=== PATIENT | female | born 1950 | race Caucasian/White ===

== ENCOUNTER → 2024-06-13 07:38 | Outpatient (REF) | payer MEDICARE, OTHER, SELFPAY ==
[2024-06-13 10:22] LABS: % Basophils 1.2 % (0-2); % Eosinophils 4.2 % (0-6); % Immature Granulocytes 0.3 % (0-0.5); % Lymphocytes 35.1 % (20.5-51.1); % Monocytes 9.1 % (1.7-9.3); % Neutrophils 50.1 % (42.2-75.2); Absolute Basophils 0.1 10^3/uL (0-0.2); Absolute Eosinophils 0.3 10^3/uL (0-0.7); Absolute Lymphocytes 2.1 10^3/uL (1.2-3.4); Absolute Monocytes 0.5 10^3/uL (0.1-0.6); Hematocrit 42.1 % (37.0-47.0); Hemoglobin 14.5 g/dL (12.0-16.0); Mean Corp Hgb Conc. 34.4 g/dL (33.0-37.0); Mean Corpuscular Hgb 32.2 pg (27.0-31.0); Mean Corpuscular Volume 93.6 fL (81.0-99.0); Nucleated Red Blood Cells % 0 %; Red Cell Dist. Width 12.6 % (11.5-14.5)
[2024-06-13 10:32] LABS: ALT (SGPT) 36 U/L (0-35); AST (SGOT) 42 U/L (14-36); Alkaline Phosphatase 66 U/L (38-126); Blood Urea Nitrogen 14 mg/dl (7-17); Calcium 9.8 mg/dl (8.4-10.2); Carbon Dioxide 26 mmol/L (22-30); Chloride 100 mmol/L (98-107); Glucose 100 mg/dl (70-99); HDL Cholesterol 109 mg/dl; LDL Cholesterol, Calculated 45 mg/dl; Potassium 4.5 mmol/L (3.5-5.1); Sodium 141 mmol/L (135-145); Total Bilirubin 1.3 mg/dl (0.2-1.3); Total Cholesterol 178 mg/dl (50-199); Total Protein 7.5 g/dl (6.3-8.2); Triglyceride 120 mg/dl (10-149); Very Low Density Lipoprotein 24 mg/dl (0-30); eGFR > 60.00
[2024-06-13 10:46] LABS: Urine Albumin Negative (Neg - Trace); Urine Bilirubin Negative (Negative); Urine Character Clear (Clear); Urine Color Yellow; Urine Glucose Negative (Negative); Urine Ketone Negative (Negative); Urine Leukocyte Negative (Negative); Urine Nitrite Negative (Negative); Urine Occult Blood Negative (Negative); Urine Urobilinogen Negative (Neg - 1+)
[2024-06-13 11:02] LABS: TSH 1.51 uIU/ml (0.47-4.68)
[2024-06-13 12:17] LABS: Glycohemoglobin (HgbA1c) 5.6 % (4.0-5.6)
== END ==
LOC: REG 07:38
PROVIDERS: ATTENDING PHYSICIAN Internal Medicine Geriatric Medicine
DX: E78.5 Hyperlipidemia, unspecified (principal); E04.1 Nontoxic single thyroid nodule; R73.09 Other abnormal glucose; R35.0 Frequency of micturition; R53.82 Chronic fatigue, unspecified; Z79.899 Other long term (current) drug therapy
CPT/HCPCS: 36415; 80053; 80061; 81003; 83036; 84443; 85025

== ENCOUNTER → 2024-07-29 13:44 | Outpatient (REF) | payer MEDICARE, OTHER, SELFPAY | LOC: WDC 13:44 | PROVIDERS: ATTENDING PHYSICIAN Internal Medicine Geriatric Medicine | DX: Z12.31 Encounter for screening mammogram for malignant neoplasm of breast (principal) | CPT/HCPCS: 77063; 77067 ==

== ENCOUNTER → 2024-08-07 10:53 | Outpatient (REF) | payer MEDICARE, OTHER, SELFPAY | LOC: RAD 10:53 | PROVIDERS: ATTENDING PHYSICIAN Internal Medicine Geriatric Medicine | DX: Z00.00 Encounter for general adult medical examination without abnormal findings (principal); I10 Essential (primary) hypertension; E78.2 Mixed hyperlipidemia; E04.1 Nontoxic single thyroid nodule; R35.0 Frequency of micturition; J04.10 Acute tracheitis without obstruction; K21.9 Gastro-esophageal reflux disease without esophagitis; Z13.31 Encounter for screening for depression; Z12.31 Encounter for screening mammogram for malignant neoplasm of breast; I65.23 Occlusion and stenosis of bilateral carotid arteries | CPT/HCPCS: 93880 ==

== ENCOUNTER → 2024-08-30 12:46 | Outpatient (REF) | payer MEDICARE, OTHER, SELFPAY | LOC: RAD 12:46 | PROVIDERS: ATTENDING PHYSICIAN Internal Medicine Geriatric Medicine | DX: Z00.00 Encounter for general adult medical examination without abnormal findings (principal); I10 Essential (primary) hypertension; E78.2 Mixed hyperlipidemia; E04.1 Nontoxic single thyroid nodule; R35.0 Frequency of micturition; J04.10 Acute tracheitis without obstruction; K21.9 Gastro-esophageal reflux disease without esophagitis; Z13.31 Encounter for screening for depression; Z12.31 Encounter for screening mammogram for malignant neoplasm of breast; I65.23 Occlusion and stenosis of bilateral carotid arteries; M81.0 Age-related osteoporosis without current pathological fracture; Z78.0 Asymptomatic menopausal state | CPT/HCPCS: 77080 ==

== ENCOUNTER → 2024-10-07 07:55 | Outpatient (REF) | payer MEDICARE, OTHER, SELFPAY ==
[2024-10-07 09:27] LABS: % Eosinophils 2.6 % (0-6); % Immature Granulocytes 0.2 % (0-0.5); % Lymphocytes 37.3 % (20.5-51.1); % Monocytes 8.8 % (1.7-9.3); % Neutrophils 50.1 % (42.2-75.2); Absolute Basophils 0.1 10^3/uL (0-0.2); Absolute Eosinophils 0.2 10^3/uL (0-0.7); Absolute Lymphocytes 2.3 10^3/uL (1.2-3.4); Absolute Monocytes 0.5 10^3/uL (0.1-0.6); Absolute Neutrophils 3.1 10^3/uL (1.4-6.5); Hematocrit 42.4 % (37.0-47.0); Hemoglobin 14.5 g/dL (12.0-16.0); Mean Corp Hgb Conc. 34.2 g/dL (33.0-37.0); Mean Corpuscular Hgb 32.7 pg (27.0-31.0); Mean Corpuscular Volume 95.7 fL (81.0-99.0); Mean Platelet Volume 9.7 fL (7.4-10.4); Nucleated Red Blood Cells % 0 %; Platelet Count 237 10^3/uL (130-400); Red Blood Cell Count 4.43 10^6/uL (4.20-5.40); Red Cell Dist. Width 12.4 % (11.5-14.5); White Blood Cell Count 6.2 10^3/uL (4.8-10.8)
[2024-10-07 09:54] LABS: ALT (SGPT) 25 U/L (0-35); AST (SGOT) 30 U/L (14-36); Albumin 4.5 g/dl (3.5-5.0); Alkaline Phosphatase 86 U/L (38-126); Blood Urea Nitrogen 14 mg/dl (7-17); Calcium 9.8 mg/dl (8.4-10.2); Carbon Dioxide 31 mmol/L (22-30); Chloride 100 mmol/L (98-107); Glucose 104 mg/dl (70-99); Magnesium 2.1 mg/dl (1.6-2.3); Phosphorus 3.7 mg/dl (2.5-4.5); Potassium 4.3 mmol/L (3.5-5.1); Sodium 138 mmol/L (135-145); Total Protein 7.4 g/dl (6.3-8.2); eGFR > 60.00
[2024-10-07 10:04] LABS: Vitamin D, 25-OH*** 47.2 ng/mL (30-80)
[2024-10-09 10:22] LABS: Intact PTH 39.2 pg/ml (13.6-85.8)
== END ==
LOC: RAD 07:55
PROVIDERS: ATTENDING PHYSICIAN Student in an Organized Health Care Education/Training Program; FAMILY PHYSICIAN Internal Medicine Geriatric Medicine
DX: M25.551 Pain in right hip (principal); M81.0 Age-related osteoporosis without current pathological fracture; S62.102S Fracture of unspecified carpal bone, left wrist, sequela
CPT/HCPCS: 36415; 73502; 80053; 82306; 83735; 83970; 84100; 85025

== ENCOUNTER → 2024-11-24 08:15 | Outpatient (REF) | payer MEDICARE, OTHER, SELFPAY | LOC: MRI 3T 08:15 | PROVIDERS: ATTENDING PHYSICIAN Internal Medicine Geriatric Medicine | DX: I10 Essential (primary) hypertension (principal); E78.2 Mixed hyperlipidemia; E04.1 Nontoxic single thyroid nodule; R35.0 Frequency of micturition; J04.10 Acute tracheitis without obstruction; K21.9 Gastro-esophageal reflux disease without esophagitis; Z13.31 Encounter for screening for depression; M79.18 Myalgia, other site | CPT/HCPCS: 73721 ==

== ENCOUNTER → 2024-12-19 07:20 | Outpatient (REF) | payer MEDICARE, OTHER, SELFPAY ==
[2024-12-19 08:35] LABS: % Basophils 0.8 % (0-2); % Eosinophils 2.2 % (0-6); % Immature Granulocytes 0.3 % (0-0.5); % Lymphocytes 28.1 % (20.5-51.1); % Neutrophils 60.6 % (42.2-75.2); Absolute Basophils 0.1 10^3/uL (0-0.2); Absolute Eosinophils 0.2 10^3/uL (0-0.7); Absolute Monocytes 0.6 10^3/uL (0.1-0.6); Absolute Neutrophils 4.3 10^3/uL (1.4-6.5); Hematocrit 45.2 % (37.0-47.0); Hemoglobin 15.4 g/dL (12.0-16.0); Mean Corp Hgb Conc. 34.1 g/dL (33.0-37.0); Mean Corpuscular Hgb 33.3 pg (27.0-31.0); Mean Corpuscular Volume 97.6 fL (81.0-99.0); Mean Platelet Volume 9.5 fL (7.4-10.4); Nucleated Red Blood Cells % 0 %; Platelet Count 269 10^3/uL (130-400); Red Blood Cell Count 4.63 10^6/uL (4.20-5.40); Red Cell Dist. Width 12.4 % (11.5-14.5); White Blood Cell Count 7.1 10^3/uL (4.8-10.8)
[2024-12-19 09:01] LABS: Erythrocyte Sed Rate 14 mm/hour (0-20)
[2024-12-19 10:13] LABS: ALT (SGPT) 23 U/L (0-35); AST (SGOT) 26 U/L (14-36); Albumin 5.2 g/dl (3.5-5.0); Alkaline Phosphatase 61 U/L (38-126); Blood Urea Nitrogen 13 mg/dl (7-17); Calcium 9.2 mg/dl (8.4-10.2); Carbon Dioxide 22 mmol/L (22-30); Chloride 104 mmol/L (98-107); Glucose 110 mg/dl (70-99); Potassium 4.5 mmol/L (3.5-5.1); Sodium 141 mmol/L (135-145); Total Bilirubin 1.2 mg/dl (0.2-1.3); Total Protein 7.9 g/dl (6.3-8.2); eGFR > 60.00
[2024-12-19 10:44] LABS: TSH Reflex To Free T4 1.31 uIU/ml (0.47-4.68)
== END ==
LOC: REG 07:20
PROVIDERS: ATTENDING PHYSICIAN Nurse Practitioner Family; FAMILY PHYSICIAN Internal Medicine Geriatric Medicine
DX: R19.4 Change in bowel habit (principal)
CPT/HCPCS: 36415; 80053; 84443; 85025; 85652; 86140

== ENCOUNTER → 2024-12-27 12:38 | Outpatient (REF) | payer MEDICARE, OTHER, SELFPAY | LOC: RAD 12:38 | PROVIDERS: ATTENDING PHYSICIAN Nurse Practitioner Family | DX: R19.5 Other fecal abnormalities (principal) | CPT/HCPCS: 74177; Q9967 ==

== ENCOUNTER 2025-03-25 06:33 | Day surgery (SDC) | payer MEDICARE, OTHER, SELFPAY | END 2025-03-25 14:17 | disposition home or self-care (01) | LOC: GI 06:33 | PROVIDERS: ATTENDING PHYSICIAN Internal Medicine Gastroenterology | DX: Z12.11 Encounter for screening for malignant neoplasm of colon (principal); R19.4 Change in bowel habit; K57.30 Diverticulosis of large intestine without perforation or abscess without bleeding; K64.8 Other hemorrhoids; K63.89 Other specified diseases of intestine; K31.7 Polyp of stomach and duodenum; K31.89 Other diseases of stomach and duodenum; K22.89 Other specified disease of esophagus; D12.0 Benign neoplasm of cecum; D12.3 Benign neoplasm of transverse colon; Z86.0100 Personal history of colon polyps, unspecified | CPT/HCPCS: 45385; 45380; 45381; 43239; 88305; 88342 ==

== ENCOUNTER 2025-04-06 10:38 | Emergency (ER) | payer MEDICARE, OTHER, SELFPAY ==
[2025-04-06 10:41] VITALS: BP 180/108
--- NOTE | 2025-04-06 11:09 | ED.GENMED ---
History of Present Illness
General
Chief Complaint: Fall
Source: patient
Exam Limitations: none
Time Seen by Provider: 04/06/25 10:48
Nursing documentation reviewed up to this point in time: agreed with
History of Present Illness
History of Present Illness:
74-year-old female with history as noted presents for evaluation of left foot/ankle injury. Patient reports that she was walking out of a restaurant yesterday and suffered an inversion injury of the left ankle. She says that this morning she had
increased pain and swelling and could not bear weight which prompted ER visit. She denies any knee pain or any other acute issues.
Past History
Past History
ED Past Medical History: GERD and Other (Diverticulosis)
ED Past Surgical History: Orthopedic
Social History
Tobacco: Non-smoker
Alcohol: Occasional
Drug: None
Personal:
Living: with family
Employment: Employed
Family History
Family History: Negative Early CAD
Review of Systems
Review of Systems
All Other Systems: ROS reviewed and negative except as documented in HPI and ROS
Musculoskeletal: Reports joint pain
Phy Exam
Physical Exam
Physical Exam:
General: Well appearing and non-toxic
HEENT: protecting airway
Neck: appears supple
CV: No evidence of cyanosis
Resp: No accessory muscle use
Abd: Non-distended
Extremities: No deformities, on exam of the left lower extremity patient has bruising and swelling anterior to the left lateral malleolus and tenderness in this region she also has some mild tenderness at the base of the fifth metatarsal on the
left; she has no tenderness of the medial malleolus, no tenderness of the midfoot, no tenderness of the calcaneus or along the Achilles tendon, no tenderness in the left knee and full range of motion of the left knee; on range of motion of the ankle
she has pain with dorsi flexion and plantarflexion; right foot and ankle appear normal; she has a strong palpable pulse bilaterally DP
Neuro: Alert
Psych: Normal affect
Skin: Intact
Scores
Heart Failure Risk
Heart Failure Risk Score: Not Applicable
Heart Score for Chest Pain Patients
STEMI patient?: Not applicable
Withdrawal Assessment of Alcohol
Withdrawal Assessment Completed?: Not applicable
Course
Orders/Labs/Results
Orders:
Orders
04/06/25 10:43
Foot, Left 3 View [CR Foot - Left Min 3 Views] Urgent
Comment: can;t bear weight today.
Reason For Exam: tripped and injuried left foot yesterday
04/06/25 11:04
CR Ankle - Left Min 3 Views Urgent
Comment:
Reason For Exam: ankle pain
04/06/25 11:25
Crutches-Treatment ONCE
Ortho Boot Left- Treatment ONCE
Short or tall?: Short
Vital Signs
Initial and Last Documented VS:
Initial Vital Signs
Temp Pulse Resp BP Pulse Ox
36.7 C 82 16 180/108 98
04/06/25 10:41 04/06/25 10:41 04/06/25 10:41 04/06/25 10:41 04/06/25 10:41
Last Documented Vital Signs
Temp Pulse Resp BP Pulse Ox
36.7 C 82 16 180/108 98
04/06/25 10:41 04/06/25 10:41 04/06/25 10:41 04/06/25 10:41 04/06/25 11:10
MDM/Problems Addressed
Differential Diagnosis Includes:
Foot/ankle fracture, sprain
MDM/Problems Addressed:
74-year-old female presents with ankle injury as described above. Vitals and exam as above. Will check x-ray of the foot and ankle. Reassess after the above.
X-rays reviewed by me: Patient has fracture of the base of the fifth metatarsal. Will place an Ortho boot, provided crutches. Advised regarding RICE and NSAIDs. Stable for discharge to follow-up with orthopedist as an outpatient. All questions
answered.
*Radiology
Radiology exam reviewed: preliminary read by ED provider
*Pulse Oximetry
SaO2: 98
Oxygen Mode of Delivery: Room air
Patient hypoxic: no (98%)
*Critical Care Note
Total Time (30-74mins, 75-104mins- exclusive of procedures): Not Applicable
Data Reviewed
Source: patient and records
ED Attending Note
-
Portions of this chart may have been created with voice recognition software.� Occasional wrong word or��sound alike� substitutions may have occurred due to the inherent limitations of voice recognition software.
Discharge Plan
Departure
Patient Disposition: Home (Routine Discharge)
Date of Disposition: 04/06/25
Time of Disposition: 11:25
Patient with high blood pressure during this ER visit?: Yes
Discharge Problem:
Fracture of 5th metatarsal
Instructions: Foot Fracture ED
Prescriptions:
No Action
atorvastatin 10 MG tablet
20 mg PO DAILY
omeprazole [Prilosec] 10 MG capsule,delayed release(DR/EC)
20 mg PO DAILY
multivitamin 1 EACH tablet
1 ea PO DAILY
Referrals:
Elie Mcfarland DPM [Active, Podiatry] - Follow up in 5-7 days
Activity Restrictions/Additional Instructions:
Thank you for visiting the Emergency Department at [facility].
1. Please schedule a follow up appointment as directed. Call first thing tomorrow morning to make an appointment.
2. If indicated, please take your medications as instructed and indicated on discharge paperwork.
3. If any of your symptoms do not improve, or persist, or become more severe within 6-12 hours, please return to the emergency department for further care.
4. Please return to the emergency department if you develop a headache, neck pain/stiffness, fever greater than 100.4F, chest pain, shortness of breath, persistent nausea, vomiting, slurred speech, difficulty walking, numbness/tingling, weakness,
signs of infection or any other symptoms that are worrisome to you.
Please call [phone] if you have any questions.
Interventions
Interventions:
*Risk Screen - Suicide Last Done: 04/06/25 10:41
*General Assessment Last Done: 04/06/25 11:22
*Neglect/Abuse Screening Last Done: 04/06/25 10:41
*ED- Fall Risk Assessment Last Done: 04/06/25 11:22
*ED COVID-19 Vaccine History Last Done: 04/06/25 11:22
ED-Musculoskeletal Assessment Last Done: 04/06/25 11:22
ED- Neurological Assessment Last Done: 04/06/25 11:22
ED-Skin Assessment Last Done: 04/06/25 11:22
Discharge Date and Time
Print Language: CYMRAES
[2025-04-06 11:48] VITALS: BP 169/97
== END 2025-04-06 11:49 | disposition home or self-care (01) ==
LOC: EMR 10:38
PROVIDERS: EMERGENCY PHYSICIAN Emergency Medicine; FAMILY PHYSICIAN Internal Medicine Geriatric Medicine
DX: S92.352A Displaced fracture of fifth metatarsal bone, left foot, initial encounter for closed fracture (principal); X50.1XXA Overexertion from prolonged static or awkward postures, initial encounter
CPT/HCPCS: 99283; 73610; 73630

== ENCOUNTER → 2025-05-07 08:54 | Outpatient (REF) | payer MEDICARE, OTHER, SELFPAY ==
[2025-05-07 10:27] LABS: Hematocrit 41.5 % (37.0-47.0); Hemoglobin 14.5 g/dL (12.0-16.0); Mean Corp Hgb Conc. 34.9 g/dL (33.0-37.0); Mean Corpuscular Volume 93.7 fL (81.0-99.0); Nucleated Red Blood Cells % 0 %; Platelet Count 266 10^3/uL (130-400); Red Cell Dist. Width 11.9 % (11.5-14.5)
[2025-05-07 10:52] LABS: ALT (SGPT) 21 U/L (0-35); AST (SGOT) 28 U/L (14-36); Albumin 5.0 g/dl (3.5-5.0); Alkaline Phosphatase 44 U/L (38-126); Blood Urea Nitrogen 9 mg/dl (7-17); Calcium 9.6 mg/dl (8.4-10.2); Carbon Dioxide 27 mmol/L (22-30); Chloride 101 mmol/L (98-107); Glucose 110 mg/dl (70-99); Potassium 4.3 mmol/L (3.5-5.1); Sodium 135 mmol/L (135-145); Total Protein 7.6 g/dl (6.3-8.2); eGFR > 60.00
== END ==
LOC: REG 08:54
PROVIDERS: ATTENDING PHYSICIAN Student in an Organized Health Care Education/Training Program; FAMILY PHYSICIAN Internal Medicine Geriatric Medicine
DX: M25.551 Pain in right hip (principal); M81.0 Age-related osteoporosis without current pathological fracture; S62.102S Fracture of unspecified carpal bone, left wrist, sequela
CPT/HCPCS: 36415; 80053; 85025

== ENCOUNTER → 2025-05-08 10:38 | Outpatient (REF) | payer MEDICARE, OTHER, SELFPAY | LOC: REG 10:38 | PROVIDERS: ATTENDING PHYSICIAN Internal Medicine Gastroenterology | DX: R19.5 Other fecal abnormalities (principal); R19.4 Change in bowel habit | CPT/HCPCS: 36415; 82784; 83516; 84443 ==

== ENCOUNTER → 2025-05-09 08:25 | Outpatient (REF) | payer MEDICARE, OTHER, SELFPAY | LOC: REG 08:25 | PROVIDERS: ATTENDING PHYSICIAN Internal Medicine Gastroenterology; FAMILY PHYSICIAN Internal Medicine Geriatric Medicine | DX: R19.5 Other fecal abnormalities (principal) | CPT/HCPCS: 36415; 83993; 87328; 87329 ==

== ENCOUNTER 2025-05-12 12:08 | Emergency (ER) | payer MEDICARE, OTHER, SELFPAY ==
[2025-05-12 12:22] VITALS: BP 161/78
--- NOTE | 2025-05-12 17:20 | ED.GENMED ---
History of Present Illness
General
Chief Complaint: Abdominal Symptoms
Time Seen by Provider: 05/12/25 16:54
History of Present Illness
History of Present Illness:
74-year-old female presents to the emergency department for evaluation of persistent diarrhea for the past month. States that she underwent a colonoscopy at this hospital and within 1 week started having voluminous diarrhea. Has tried numerous
dietary modifications without improvement. Reports 5 or more episodes of loose to watery diarrhea each day. Did have outpatient stool collection performed for Cryptosporidium and Giardia that was negative. Denies any fevers or chills. Denies any
abdominal pain associated with this however over the past 1 to 2 days has felt increasingly dehydrated and has had some urinary difficulty as well. [place] near syncopal while showering today prompting her to come to the ER. No recent antibiotics in
the past 3 months from onset of symptoms
Past History
Past History
ED Past Medical History: GERD and Other (Diverticulosis)
ED Past Surgical History: Orthopedic
Social History
Tobacco: Non-smoker
Alcohol: Occasional
Drug: None
Personal:
Living: with family
Employment: Employed
Family History
Family History: Negative Early CAD
Review of Systems
Review of Systems
Allergies reviewed?: Yes
All Other Systems: ROS reviewed and negative except as documented in HPI and ROS
Phy Exam
Physical Exam
Physical Exam:
GEN: Well appearing, NAD, WDWN
HEENT: Oral mucosa moist, no scleral icterus
Cardiac: Regular rate and rhythm, no murmur
Lung: No respiratory distress, no tachypnea
Abdomen: Soft, grossly nontender
MSK: No gross deformity or injuries
Skin: Good color, no pallor or jaundice, no rashes
Neuro: AO x3, moves all extremities freely
Psych: Calm, cooperative
Course
Orders/Labs/Results
Orders:
Orders
05/12/25 17:20
Lactated Ringers [Lr] 1,000 ml IV BOLUS
05/12/25 17:31
Complete Blood Count/With Diff Urgent
Comprehensive Metabolic Panel Urgent
05/12/25 19:03
Urinalysis Reflex To Culture Urgent
Date Specimen was Collected: 05/12/25
Time Specimen was Collected: 17:23
Urine Microscopic Reflex Cult Urgent
Urine Culture Urgent
HAZEL Source: U
Specimen Description:
Date Specimen was Collected: 05/12/25
Time Specimen was Collected: 17:23
05/12/25 20:17
Fosfomycin [Monurol] 3 gm PO ONCE ONE
05/12/25 20:41
C DIFF [C difficile Antigen & Toxins] Urgent
HAZEL Source: Feces/Stool
Specimen Description:
Date Specimen was Collected: 05/12/25
Time Specimen was Collected: 20:40
Stool Culture Urgent
HAZEL Source: Feces/Stool
Specimen Description:
Date Specimen was Collected: 05/12/25
Time Specimen was Collected: 20:40
Abnormal Lab Results
05/12/25 05/12/25
17:31 19:03
WBC 16.0 H 10^3/uL
(4.8-10.8)
RBC 4.16 L 10^6/uL
(4.20-5.40)
MCH 32.0 H pg
(27.0-31.0)
Absolute Neuts (auto) 12.7 H 10^3/uL
(1.4-6.5)
Absolute Monos (auto) 1.1 H 10^3/uL
(0.1-0.6)
Neutrophils % 79.0 H %
(42.2-75.2)
Lymphocytes % 13.7 L %
(20.5-51.1)
Total Bilirubin 1.6 H mg/dl
(0.2-1.3)
Urine Ketones 2+ A
(Negative)
Ur Occult Blood Reflex 4+ A
(Negative)
Leukocyte Esterase Rfl 3+ A
(Negative)
Urine RBC 7-10 A /HPF
(0-2)
Urine WBC (Reflex) 50-60 A /HPF
(0-5)
Urine Bacteria (Reflex) Moderate A
(Negative)
Urine Albumin (Reflex) 1+ A
(Neg - Trace)
05/12/25 17:31
05/12/25 17:31
Vital Signs
Initial and Last Documented VS:
Initial Vital Signs
Temp Pulse Resp BP Pulse Ox
98.6 F 86 16 161/78 98
05/12/25 12:22 05/12/25 12:22 05/12/25 12:22 05/12/25 12:22 05/12/25 12:22
Last Documented Vital Signs
Temp Pulse Resp BP Pulse Ox
98.2 F 79 16 132/84 99
05/12/25 20:48 05/12/25 20:48 05/12/25 20:48 05/12/25 20:48 05/12/25 20:48
MDM/Problems Addressed
MDM/Problems Addressed:
Patient did have previous stool collections however only Cryptosporidium was resulted thus stool culture and C. difficile are sent particular given onset of symptoms after a colonoscopy. She appears clinically well despite her leukocytosis this may
be a stress response or hypovolemia. No indication for urgent antibiotics at this time. Will await stool culture and C. difficile testing, she has scheduled outpatient follow-up with GI, I did provide her with an antidiarrheal for symptom relief
*Pulse Oximetry
SaO2: 98
Oxygen Mode of Delivery: Room air
Patient hypoxic: no
*Critical Care Note
Total Time (30-74mins, 75-104mins- exclusive of procedures): Not Applicable
ED Attending Note
-
Portions of this chart may have been created with voice recognition software.� Occasional wrong word or��sound alike� substitutions may have occurred due to the inherent limitations of voice recognition software.
Discharge Plan
Departure
Patient Disposition: Home (Routine Discharge)
Date of Disposition: 05/12/25
Time of Disposition: 20:17
Patient with high blood pressure during this ER visit?: No
Discharge Problem:
Diarrhea, Acute UTI
Instructions: Diarrhea in teens and adults
Prescriptions:
New
diphenoxylate-atropine [Lomotil] 2.5-0.025 mg tablet
1 tab PO DAILY PRN (Reason: diarrhea) Qty: 20 0RF
No Action
atorvastatin 10 MG tablet
20 mg PO DAILY
omeprazole [Prilosec] 10 MG capsule,delayed release(DR/EC)
20 mg PO DAILY
multivitamin 1 EACH tablet
1 ea PO DAILY
Referrals:
Godfrey Herr MD [Family Provider, Internal Medicine]
Activity Restrictions/Additional Instructions:
Your UTI was treated with a single dose of antibiotics in the emergency department
Please follow-up with your primary care physician as well as gastroenterology regarding the test results that were sent at time of discharge in the ER
Interventions
Interventions:
*Risk Screen - Suicide Last Done: 05/12/25 12:22
*General Assessment Last Done: 05/12/25 20:48
*Neglect/Abuse Screening Last Done: 05/12/25 17:35
*ED- Fall Risk Assessment Last Done: 05/12/25 17:36
*ED COVID-19 Vaccine History Last Done: 05/12/25 20:48
*Nursing Disposition Last Done: 05/12/25 20:48
OU-Ydgglv-Uqkmvglskh Assessment Last Done: 05/12/25 17:39
Discharge Date and Time
Discharge Date/Time: 05/12/25 20:50
Print Language: SETSWANA
[2025-05-12] MEDS: LR 1000 IV (17:34)
[2025-05-12 17:35] VITALS: BMI 19.5
[2025-05-12 17:36] VITALS: BP 161/81
[2025-05-12 17:49] LABS: Hematocrit 37.9 % (37.0-47.0); Hemoglobin 13.3 g/dL (12.0-16.0); Mean Corp Hgb Conc. 35.1 g/dL (33.0-37.0); Mean Corpuscular Volume 91.1 fL (81.0-99.0); Nucleated Red Blood Cells % 0 %; Platelet Count 223 10^3/uL (130-400); Red Cell Dist. Width 12.0 % (11.5-14.5)
[2025-05-12 18:04] LABS: ALT (SGPT) 22 U/L (0-35); AST (SGOT) 28 U/L (14-36); Albumin 4.8 g/dl (3.5-5.0); Alkaline Phosphatase 49 U/L (38-126); Blood Urea Nitrogen 7 mg/dl (7-17); Calcium 9.2 mg/dl (8.4-10.2); Carbon Dioxide 25 mmol/L (22-30); Chloride 102 mmol/L (98-107); Estimated Creatinine Clearance 67 ml/min; Glucose 96 mg/dl (70-99); Potassium 4.0 mmol/L (3.5-5.1); Sodium 135 mmol/L (135-145); Total Protein 7.3 g/dl (6.3-8.2); eGFR > 60.00
[2025-05-12 20:07] LABS: Urine Character Slightly Cloudy (Clear)
[2025-05-12 20:14] LABS: Urine White Cell 50-60 /HPF (0-5)
[2025-05-12] MEDS: MONUROL 3 GM PO (20:34)
[2025-05-12 20:48] VITALS: BP 132/84
== END 2025-05-12 20:50 | disposition home or self-care (01) ==
LOC: EMR 12:08
PROVIDERS: Physician Assistant; EMERGENCY PHYSICIAN Emergency Medicine; FAMILY PHYSICIAN Internal Medicine Geriatric Medicine
DX: R19.7 Diarrhea, unspecified (principal); N39.0 Urinary tract infection, site not specified; K21.9 Gastro-esophageal reflux disease without esophagitis
CPT/HCPCS: 99283; 80053; 81003; 81015; 85025; 87045; 87046; 87077; 87086; 87186; 87324; 87427; 87449

== ENCOUNTER 2025-05-21 20:15 | Inpatient (IN) | payer MEDICARE, OTHER, SELFPAY ==
[2025-05-21] VITALS (7 sets, daily range): BP systolic 136–180; BP diastolic 62–97; PULSE 67–75; BMI 21.4; BMI 20.9
[2025-05-21 14:27] LABS: Hematocrit 38.1 % (37.0-47.0); Hemoglobin 13.2 g/dL (12.0-16.0); Mean Corp Hgb Conc. 34.6 g/dL (33.0-37.0); Mean Corpuscular Volume 94.3 fL (81.0-99.0); Nucleated Red Blood Cells % 0 %; Platelet Count 233 10^3/uL (130-400); Red Cell Dist. Width 12.2 % (11.5-14.5)
[2025-05-21 14:38] LABS: APTT 28.7 Sec (23.4-35.0); INR 0.93; PT 12.9 Sec (11.4-14.6)
[2025-05-21 14:45] LABS: ALT (SGPT) 19 U/L (0-35); AST (SGOT) 23 U/L (14-36); Albumin 4.4 g/dl (3.5-5.0); Alkaline Phosphatase 48 U/L (38-126); Blood Urea Nitrogen 16 mg/dl (7-17); Calcium 9.2 mg/dl (8.4-10.2); Carbon Dioxide 27 mmol/L (22-30); Chloride 103 mmol/L (98-107); Glucose 144 mg/dl (70-99); Potassium 4.0 mmol/L (3.5-5.1); Sodium 136 mmol/L (135-145); Total Protein 6.9 g/dl (6.3-8.2); eGFR > 60.00
--- NOTE | 2025-05-21 16:32 | ED.GENMED ---
History of Present Illness
<ANDRES Barakat - Last Filed: 05/21/25 19:11>
General
Chief Complaint: Rectal Bleeding
Source: patient
Exam Limitations: none
Time Seen by Provider: 05/21/25 16:03
Nursing documentation reviewed up to this point in time: agreed with
History of Present Illness
History of Present Illness:
Patient is a 74-year-old female presents to the ER for evaluation. Patient reports today she has had multiple episodes of black stools with some blood mixed in. She is on aspirin only no other blood thinners. She does report ever since having a
colonoscopy 1 month ago she has had persistent diarrhea at least 8 episodes of diarrhea per day. She is followed by GI here, DR Vera. She was started on Colestipol for the chronic diarrhea and just started it yesterday.
She denies any abdominal pain.
She does report that during her previous colonoscopy she had polyps removed and it was larger in size and therefore they want a repeat colonoscopy in 6 months.
She also has had some urinary urgency and then feels difficultly urinating. She denies any nausea vomiting fever chills.
Past History
<ANDRES Barakat - Last Filed: 05/21/25 19:11>
Past History
ED Past Medical History: GERD and Other (Diverticulosis)
ED Past Surgical History: Orthopedic
Social History
Tobacco: Non-smoker
Alcohol: Occasional
Drug: None
Personal:
Living: with family
Employment: Employed
Family History
Family History: Negative Early CAD
Phy Exam
<ANDRES Barakat - Last Filed: 05/21/25 19:11>
General Physical Exam
General Presentation: no apparent distress
General age: appears stated age
General Skin: warm and dry
General Habitus: normal
General Mental: alert and angry
General Hydration: appears well hydrated
Gastrointestinal Exam
Gastrointestinal Exam: non tender, soft and other (rectal exam done : no stool in vault )
Neurological Exam
Neurological Exam: alert and oriented x3
Musculoskeletal Exam
Musculoskeletal Exam: full ROM
Skin Exam
Skin Exam: normal color and warm/dry
Psychiatric Exam
Psychiatric Exam: normal mood/affect
Course
<ANDRES Barakat - Last Filed: 05/21/25 19:11>
Orders/Labs/Results
Orders:
Orders
05/21/25 Breakfast
NPO
Allow oral meds: Yes
Allow clear liquids: Sips of Clears
05/21/25 14:12
Type And Crossmatch [Type+Screen] Urgent
Complete Blood Count/With Diff Urgent
Comprehensive Metabolic Panel Urgent
PTT Urgent
Prothrombin Time Urgent
05/21/25 17:51
Urinalysis Reflex To Culture Urgent
Date Specimen was Collected: 05/21/25
Time Specimen was Collected: 17:49
Urine Microscopic Reflex Cult Urgent
Urine Culture Urgent
HAZEL Source: U
Specimen Description:
Date Specimen was Collected: 05/21/25
Time Specimen was Collected: 17:49
05/21/25 18:28
Stool Culture Urgent
HAZEL Source: Feces/Stool
Specimen Description:
Date Specimen was Collected: 05/21/25
Time Specimen was Collected: 18:26
05/21/25 19:04
CefTRIAXone [Rocephin] 1,000 mg IV NOW STA
05/21/25 19:10
0.9% Sodium Chloride 1000 ml [Nss] 1,000 ml IV BOLUS
05/21/25 19:58
Admit/Transfer Patient As Directed
Co-Sign Provider:
Level of Care: Inpatient admission
Assign to:: Telemetry
Physician / Group: Carlito
Diagnosis: Diarrhea
Reason for Telemetry: Arrhythmia
Date to Stop Telemetry: 05/24/25
Time to Stop Telemetry: 11:00
Reason for Hospitalization: Diarrhea, Bloody Stools
Expected length of stay greater than two midnights?: Yes
ELOS- Estimated Length of Stay in days: 3
I certify the patient meets the requirements for IP care: Yes
05/21/25 19:59
PRN Pain Medication Management As Directed
May give lesser potent ordered pain med per pt: Yes
preference::
Protocol:: Medication orders for pain may be administered in a
manner that supports deferring to patient preference
when the pt is:
- Requesting an ordered lesser potent pain medication.
Least to most potent pain medications are defined
as: acetaminophen < NSAID < tramadol < opioids
(morphine, oxycodone, hydromorphone).
- Requesting a lesser dose of the same medication IF
ORDERED.
- Requesting a less intrusive route of administration
if both routes are prescribed by the provider (PO <
IV).
05/21/25 20:03
Code Status As Directed
Resuscitation Status: Full Code
05/21/25 21:19
0.9% Sodium Chloride 1000 ml [Nss] 1,000 ml IV 125 mls/hr
Acetaminophen [Tylenol] 650 mg PO Q4HPRN PRN
05/21/25 21:19
Activity As Directed
Activity Level: Ambulate
With Assistance
EKG with chest pain [ECG as needed] As Directed
ECG as needed for:: Chest Pain
I/O [Intake/ Output] As Directed
Frequency: Per unit guidelines
Orthostatic Vital Signs As Directed
Orthostatic VS Frequency: BID
Pneumatic Compression Sleeves As Directed
Type: Knee high
Vital Signs As Directed
Frequency: Per unit guidelines
Weight As Directed
Frequency: Daily
Oxygen Therapy [O2 Therapy] [RESP] Routine
Titrate/Wean O2 to maintain O2 sat greater than (%): 94
DX Deep Vein Thrombosis Video Routine
05/22/25 06:00
Basic Metabolic Panel IN AM
Complete Blood Count/No Diff IN AM
05/22/25 08:00
Pantoprazole [Protonix IV] 40 mg IV BID
05/22/25 20:00
CefTRIAXone [Rocephin] 1,000 mg IV Q24H
05/24/25 11:00
DC Protocol for Telemetry ONCE
Abnormal Lab Results
05/21/25 05/21/25
14:12 17:51
WBC 11.4 H 10^3/uL
(4.8-10.8)
RBC 4.04 L 10^6/uL
(4.20-5.40)
MCH 32.7 H pg
(27.0-31.0)
Absolute Neuts (auto) 8.5 H 10^3/uL
(1.4-6.5)
Absolute Monos (auto) 1.0 H 10^3/uL
(0.1-0.6)
Lymphocytes % 15.3 L %
(20.5-51.1)
Glucose 144 H mg/dl
(70-99)
Ur Occult Blood Reflex 3+ A
(Negative)
Leukocyte Esterase Rfl 3+ A
(Negative)
Urine RBC 3-6 A /HPF
(0-2)
Urine WBC (Reflex) 80-90 A /HPF
(0-5)
Urine Bacteria (Reflex) Few A
(Negative)
Urine Albumin (Reflex) 1+ A
(Neg - Trace)
05/21/25 14:12
05/21/25 14:12
Vital Signs
Initial and Last Documented VS:
Initial Vital Signs
Temp Pulse Resp BP Pulse Ox
98.0 F 98 18 180/97 99
05/21/25 13:59 05/21/25 13:59 05/21/25 13:59 05/21/25 13:59 05/21/25 13:59
Last Documented Vital Signs
Temp Pulse Resp BP Pulse Ox
98.3 F 62 16 167/76 99
05/21/25 21:13 05/21/25 21:13 05/21/25 21:13 05/21/25 21:13 05/21/25 21:13
[place] consulted with Physician
[place] consulted with physician?: Yes
Name of Physician Consulted: Aguila
<Bonifacio Sheehan MD - Last Filed: 05/21/25 22:04>
Orders/Labs/Results
Orders:
Orders
05/21/25 Breakfast
NPO
Allow oral meds: Yes
Allow clear liquids: Sips of Clears
05/21/25 14:12
Type And Crossmatch [Type+Screen] Urgent
Complete Blood Count/With Diff Urgent
Comprehensive Metabolic Panel Urgent
PTT Urgent
Prothrombin Time Urgent
05/21/25 17:51
Urinalysis Reflex To Culture Urgent
Date Specimen was Collected: 05/21/25
Time Specimen was Collected: 17:49
Urine Microscopic Reflex Cult Urgent
Urine Culture Urgent
HAZEL Source: U
Specimen Description:
Date Specimen was Collected: 05/21/25
Time Specimen was Collected: 17:49
05/21/25 18:28
Stool Culture Urgent
HAZEL Source: Feces/Stool
Specimen Description:
Date Specimen was Collected: 05/21/25
Time Specimen was Collected: 18:26
05/21/25 19:04
CefTRIAXone [Rocephin] 1,000 mg IV NOW STA
05/21/25 19:10
0.9% Sodium Chloride 1000 ml [Nss] 1,000 ml IV BOLUS
05/21/25 19:58
Admit/Transfer Patient As Directed
Co-Sign Provider:
Level of Care: Inpatient admission
Assign to:: Telemetry
Physician / Group: Carlito
Diagnosis: Diarrhea
Reason for Telemetry: Arrhythmia
Date to Stop Telemetry: 05/24/25
Time to Stop Telemetry: 11:00
Reason for Hospitalization: Diarrhea, Bloody Stools
Expected length of stay greater than two midnights?: Yes
ELOS- Estimated Length of Stay in days: 3
I certify the patient meets the requirements for IP care: Yes
05/21/25 19:59
PRN Pain Medication Management As Directed
May give lesser potent ordered pain med per pt: Yes
preference::
Protocol:: Medication orders for pain may be administered in a
manner that supports deferring to patient preference
when the pt is:
- Requesting an ordered lesser potent pain medication.
Least to most potent pain medications are defined
as: acetaminophen < NSAID < tramadol < opioids
(morphine, oxycodone, hydromorphone).
- Requesting a lesser dose of the same medication IF
ORDERED.
- Requesting a less intrusive route of administration
if both routes are prescribed by the provider (PO <
IV).
05/21/25 20:03
Code Status As Directed
Resuscitation Status: Full Code
05/21/25 21:19
0.9% Sodium Chloride 1000 ml [Nss] 1,000 ml IV 125 mls/hr
Acetaminophen [Tylenol] 650 mg PO Q4HPRN PRN
05/21/25 21:19
Activity As Directed
Activity Level: Ambulate
With Assistance
EKG with chest pain [ECG as needed] As Directed
ECG as needed for:: Chest Pain
I/O [Intake/ Output] As Directed
Frequency: Per unit guidelines
Orthostatic Vital Signs As Directed
Orthostatic VS Frequency: BID
Pneumatic Compression Sleeves As Directed
Type: Knee high
Vital Signs As Directed
Frequency: Per unit guidelines
Weight As Directed
Frequency: Daily
Oxygen Therapy [O2 Therapy] [RESP] Routine
Titrate/Wean O2 to maintain O2 sat greater than (%): 94
DX Deep Vein Thrombosis Video Routine
05/22/25 06:00
Basic Metabolic Panel IN AM
Complete Blood Count/No Diff IN AM
05/22/25 08:00
Pantoprazole [Protonix IV] 40 mg IV BID
05/22/25 20:00
CefTRIAXone [Rocephin] 1,000 mg IV Q24H
05/24/25 11:00
DC Protocol for Telemetry ONCE
Abnormal Lab Results
05/21/25 05/21/25
14:12 17:51
WBC 11.4 H 10^3/uL
(4.8-10.8)
RBC 4.04 L 10^6/uL
(4.20-5.40)
MCH 32.7 H pg
(27.0-31.0)
Absolute Neuts (auto) 8.5 H 10^3/uL
(1.4-6.5)
Absolute Monos (auto) 1.0 H 10^3/uL
(0.1-0.6)
Lymphocytes % 15.3 L %
(20.5-51.1)
Glucose 144 H mg/dl
(70-99)
Ur Occult Blood Reflex 3+ A
(Negative)
Leukocyte Esterase Rfl 3+ A
(Negative)
Urine RBC 3-6 A /HPF
(0-2)
Urine WBC (Reflex) 80-90 A /HPF
(0-5)
Urine Bacteria (Reflex) Few A
(Negative)
Urine Albumin (Reflex) 1+ A
(Neg - Trace)
05/21/25 14:12
05/21/25 14:12
Vital Signs
Initial and Last Documented VS:
Initial Vital Signs
Temp Pulse Resp BP Pulse Ox
98.0 F 98 18 180/97 99
05/21/25 13:59 05/21/25 13:59 05/21/25 13:59 05/21/25 13:59 05/21/25 13:59
Last Documented Vital Signs
Temp Pulse Resp BP Pulse Ox
98.3 F 62 16 167/76 99
05/21/25 21:13 05/21/25 21:13 05/21/25 21:13 05/21/25 21:13 05/21/25 21:13
<ANDRES Barakat - Last Filed: 05/21/25 19:11>
MDM/Problems Addressed
Differential Diagnosis Includes:
Not limited to GI bleed, colitis, chronic diarrhea, UTI
MDM/Problems Addressed:
As documented patient is a 74-year-old female with chronic diarrhea ever since her colonoscopy 1 month ago. She is followed by GI here at [place]. She was started on colestipol for diarrhea and took the first dose yesterday. Today however she
has had multiple episodes of bloody stools which is what prompted her to come to the ER. She denies any fever or chills. She in addition complains of UTI symptoms and has an obvious UTI here in the ER. On rectal exam during initial exam patient
had no stool in the vault however patient did give a bloody stool specimen which was sent to the lab prior to Hemoccult testing. With multiple episodes of rectal bleeding would recommend admission. case d/c w/ ED physician, DR Sheehan
Chronic conditions affecting care:
Chronic diarrhea since having colonoscopy 1 month ago
<ANDRES Barakat - Last Filed: 05/21/25 19:11>
*Pulse Oximetry
SaO2: 97
Oxygen Mode of Delivery: Room air
Patient hypoxic: no
*Critical Care Note
Total Time (30-74mins, 75-104mins- exclusive of procedures): Not Applicable
ED Attending Note
<ANDRES Barakat - Last Filed: 05/21/25 19:11>
-
Portions of this chart may have been created with voice recognition software.� Occasional wrong word or��sound alike� substitutions may have occurred due to the inherent limitations of voice recognition software.
<Bonifacio Sheehan MD - Last Filed: 05/21/25 22:04>
ED Attending Note
Patient seen and examined by attending physician: Yes
ED Attending Note:
Patient presents to ED secondary to dark stool noted over the past 24 hours during bowel movement. Denies fever or chills. Denies abdominal pain. Denies nausea, vomiting, or diarrhea. Of note, patient states that she has had loose bowel
movements for the past 1 month after completing routine, outpatient schedule colonoscopy. Denies loss of appetite. Denies weight loss. Denies trauma. Denies recent change in medications or diet. Denies previous history of similar symptoms.
Denies recent travel.
Physical Exam
General: no apparent distress, not acutely ill. afebrile
Head: nc/at. eomi
Neck: supple. no meningeal signs.
Heart: s1/s2 regular rate and rhythm
Lungs: no acute respiratory distress. clear bilaterally
Abdomen: normal bowel sounds. not tender.
Neuro: alert and oriented x 3. no focal neurological deficits
Skin: no rash
Psychiatric: well kept. interactive and cooperative
Extremities: no edema. no calf tenderness.
Maroon stool noted with BM in ED. As such, patient will be admitted for further evaluation and treatment. Will obtain CTA abd/pel without any further sig. bloody BMs in ED.
H/H stable
Discharge Plan
Departure
Patient Disposition: Admit
Date of Disposition: 05/21/25
Time of Disposition: 19:10
Admit to: Med/Surg
Admit to doctor: hospitalist
Presentation/result/management discussed w/ accepting MD/DO: Hospitalist
Patient with high blood pressure during this ER visit?: Yes
Condition: Fair
Covid-19: Not Applicable
Discharge Problem:
Rectal bleed, Acute UTI
Interventions
Interventions:
*Risk Screen - Suicide Last Done: 05/21/25 13:59
*General Assessment Last Done: 05/21/25 13:59
*Neglect/Abuse Screening Last Done: 05/21/25 15:45
*ED- Fall Risk Assessment Last Done: 05/21/25 15:45
*ED COVID-19 Vaccine History Last Done: 05/21/25 15:54
*Nursing Disposition Last Done: 05/21/25 20:54
FF-Ehhgsk-Bblwpwwpml Assessment Last Done: 05/21/25 15:56
ED- Cardiac Assessment Last Done: 05/21/25 15:56
ED- Pulmonary Assessment Last Done: 05/21/25 15:56
Discharge Date and Time
Discharge Date/Time: 05/21/25 20:55
[2025-05-21 18:02] LABS: Urine Character Cloudy (Clear)
[2025-05-21 18:11] LABS: Urine Squamous Cell 0-2 /LPF (Few)
[2025-05-21 18:12] LABS: Urine White Cell 80-90 /HPF (0-5)
[2025-05-21] MEDS: NSS 1000 IV ×2 (19:19→22:09)
[2025-05-21] MEDS: ROCEPHIN 1000 MG IV (19:19)
--- NOTE | 2025-05-21 20:04 | HPS.HSE ---
Family Physician
-
Family Physician: Godfrey Herr
Chief Complaint
-
Diarrhea, Bloody Stools
History of Present Illness
Patient is a 74y F with PMH significant for osteoporosis who presents to ED complaining of diarrhea. Patient states that she had EGD and colonoscopy done on 03/25. About one week following those studies she developed profuse diarrhea. She
reports 'jelly' like stools - up to 8 times per day. She was seen in the ED here on 05/12 after she nearly passed out in the shower. Stool cultures done at that time were negative. She was noted to have evidence of E coli UTI and was treated with
a dose of Fosfomycin.
Patient states that her diarrhea has persisted. She has occasional, crampy, lower abdominal pain. No fevers / chills. No N/V.
She was started on Colestipol by GI which she states did improved her loose stools somewhat. However, today she had multiple loose stools despite the Colestipol.
Stools were black and loose and were accompanied today by gross red blood. Patient presented to the ED for further evaluation and treatment.
She reports palpitations / racing heartbeat. She denies chest pain or dyspnea. She complains of headache that has also been fairly persistent for the past several weeks.
Medical History
Past Medical History
Past Medical History: Reports Other
Additional Past Medical History:
Osteoporosis
GERD
Thyroid Nodule
Skin Cancer
Past Surgical History: Reports Other
Additional Past Surgical History:
L Wrist ORIF
Mohs Surgery
Social History
Tobacco: Non-smoker
Alcohol: None
Drug: None
Family History
Family History: Other (Mother: 'Colon issues')
Allergies / Home Medications
Allergies reflects when Allergies were last updated in [employer].
Home Medications with original date entered in [employer]
Allergy/Medication List:
Allergies
Allergy/AdvReac Type Severity Reaction Status Date / Time
ibandronate sodium (From Allergy Intermediate Unknown Verified 05/21/25 14:00
Boniva)
Home Medications
aspirin 81 mg tablet,delayed release 81 mg PO DAILY 05/21/25
atorvastatin 20 mg tablet (Lipitor) 20 mg PO QPM 05/21/25
calcium citrate 1,200 mg PO DAILY 05/21/25
carboxymethylcellulose sodium 0.25 % eye drops (TheraTears) 1 drp BOTH EYES BIDPRN PRN dryness 05/21/25
colestipol 1 gram tablet 1 g PO BID 05/21/25
denosumab 60 mg/mL subcutaneous syringe (Prolia) 60 mg SC [id number] 05/21/25
famotidine 20 mg tablet (Pepcid) 20 mg PO BID 05/21/25
finasteride 5 mg tablet 5 mg PO DAILY 05/21/25
minoxidil 2.5 mg tablet 2.5 mg PO DAILY 05/21/25
omega-3 fatty acids-fish oil 684 mg-1,200 mg capsule,delayed release 1 cap PO DAILY 05/21/25
therapeutic multivitamin 1 tab PO DAILY 05/21/25
Review of Systems
-
History Source: Patient
A 12 point ROS was completed and negative except as noted: Yes
Constitutional: Reports Fatigue; Denies Fever or Chills
Respiratory: Denies Cough or Trouble Breathing
Cardiac: Reports Palpitations; Denies Chest Pain, Diaphoresis or Syncope
Abdomen/GI: Reports Abdominal Pain, Diarrhea, Bloody Stools and Black Stools; Denies Nausea or Vomiting
: Reports Urgency; Denies Dysuria or Incontinence
Musculoskeletal: Denies Joint Pain or Edema
Neurological: Reports Headache; Denies Dizzy
Psych: Denies Depression or Anxiety
Physical Exam
Vital Signs
Vital Signs
Temp Pulse Resp BP Pulse Ox
98.0 F 78 19 136/70 97
05/21/25 13:59 05/21/25 18:00 05/21/25 18:00 05/21/25 17:00 05/21/25 18:00
Physical Exam
General: Other (74y F in no acute distress.)
HEENT: Moist mucous membranes and PERRLA
Respiratory: Clear; No Wheezes, Rales or Rhonchi
Cardiac: S1/S2 and Regular Rhythm; No Murmur
GI: Soft, Non Tender, Non Distended and Normal Bowel Sounds
Musculoskeletal: No Clubbing, No Cyanosis and No Edema
Neuro: AO x 3
Laboratory Results
-
05/21/25 14:12
05/21/25 14:12
Laboratory Results
PT 12.9 Sec (11.4-14.6) 05/21/25 14:12
INR 0.93 05/21/25 14:12
APTT 28.7 Sec (23.4-35.0) 05/21/25 14:12
Total Bilirubin 0.7 mg/dl (0.2-1.3) 05/21/25 14:12
AST 23 U/L (14-36) 05/21/25 14:12
ALT 19 U/L (0-35) 05/21/25 14:12
Alkaline Phosphatase 48 U/L (38-126) 05/21/25 14:12
Impression/Plan
-
A/P: Patient is a 74y F with PMH significant for GERD and osteoporosis who presents to ED complaining of diarrhea x weeks and now black / bloody stools.
Persistent Diarrhea
GI Bleeding
- Admit for further evaluation and treatment.
- Repeat stool studies sent - but culture data all negative on 05/12. Afebrile and non-toxic appearing.
- Hgb stable. Hemodynamically stable.
- Observe off of abx.
- Hold ASA - no personal history of NC, CVA, etc.
- IV PPI BID.
- Follow H&H for changes. Follow for further diarrhea / GI bleeding.
- GI evaluation for additional recommendations.
Near Syncope / Palpitations
- Likely secondary to volume losses.
- IVF support. Monitor on tele overnight.
E Coli UTI
- Persistent urinary symptoms of urgency and decreased urination.
- Culture from 05/12 showed > 100k CFU of morris-sensitive E coli.
- Received initial dose of Fosfomycin on 05/12 - but with persistent symptoms and abnormal UA.
- Ceftriaxone daily for now.
- Follow for improvement in symptoms.
Left Foot Fracture
- 6 weeks s/p fall with L foot fracture.
- Patient has boot that she is supposed to wear for an additional 2 weeks.
DVT Prophylaxis: SCDs
Code Status: Full
--- NOTE | 2025-05-21 23:07 | PTCARENOTE ---
Pt arrived via stretcher and walked to bed with steady gait. Vital signs stable, no complaints of pain. Pt oriented to unit, bed in lowest position, side rails up, call diana within reach. Will continue plan of care.
[2025-05-22] VITALS (7 sets, daily range): BP systolic 102–159; BP diastolic 51–84; PULSE 66–78; BMI 20.8
[2025-05-22] MEDS: NSS 1000 IV ×2 (06:11→13:29)
[2025-05-22] MEDS: NSS (PRESERVATIVE FREE) 10 ML IV (07:29)
[2025-05-22] MEDS: PROTONIX IV 40 MG IV (07:30)
[2025-05-22 08:04] LABS: Hematocrit 33.3 % (37.0-47.0); Hemoglobin 11.4 g/dL (12.0-16.0); Mean Corp Hgb Conc. 34.2 g/dL (33.0-37.0); Mean Corpuscular Volume 94.9 fL (81.0-99.0); Platelet Count 211 10^3/uL (130-400); Red Cell Dist. Width 12.3 % (11.5-14.5)
[2025-05-22 08:24] LABS: Blood Urea Nitrogen 7 mg/dl (7-17); Calcium 7.7 mg/dl (8.4-10.2); Carbon Dioxide 24 mmol/L (22-30); Chloride 110 mmol/L (98-107); Estimated Creatinine Clearance 71 ml/min; Glucose 91 mg/dl (70-99); Potassium 3.9 mmol/L (3.5-5.1); Sodium 139 mmol/L (135-145); eGFR > 60.00
--- NOTE | 2025-05-22 10:36 | CM ---
Spoke w/ spouse, initial assessment completed. Patient is a 74y F with PMH significant for osteoporosis who presents to ED complaining of diarrhea. On room air. NPO. GI consult
Patient resides w/ spouse in a 3STH, no steps to enter. Patient is independent in all areas, no device required. Patient has a couple of walkers at home but does not use currently. Patient has a shower chair in the bathroom. Denies SNF/HC hx.
Address, point of contact and insurance verified
PCP: Godfrey Herr
Pharmacy: [facility]
Plan: Home, no needs likely
--- NOTE | 2025-05-22 10:42 | W.PN.HOSP.TC ---
Today's Communication/Plan
-
Monitor hemoglobin. Anusol and bowel regimen. Antibiotics
Assessment / Plan
Assessment / Plan
Physical exam:
General: Acutely ill
HEENT: Normocephalic, Atraumatic and Moist Mucous Membranes
Respiratory: Clear to Auscultation; Negative Wheezes, Rales or Rhonchi
Cardiac: Regular Rhythm and S1/S2
GI: Soft, Nontender and Nondistended; Bowel sounds hyperdynamic
Musculoskeletal: No Clubbing, No Cyanosis and No Edema
Neuro: Awake, Alert and Oriented, no neurological deficits
Psych: Calm
A/P:
Acute on chronic diarrhea:
Suspicion for overflow diarrhea and underlying IBS
Bowel regimen
GI consult
Discussed with at bedside today
Rectal bleeding:
Unclear etiology, probably hemorrhoidal but cannot rule out infectious etiology
On clear liquid diet
Stool studies pending
Anusol as needed
Continue monitor hemoglobin
Gentle hydration
Acute blood loss anemia:
Acute blood loss versus dilutional
Continue to monitor hemoglobin closely
Recurrent versus relapse UTI:
E. coli in the urine
Continue IV ceftriaxone
Left fifth nondisplaced metatarsal fracture:
Continue PT evaluations
GERD:
Continue PPI but change to once a day
DVT prophylaxis:
SCDs
CODE STATUS:
Full code
Total time spent on today's encounter was 55 minutes which included time spent in counseling the patient/family regarding diagnosis and treatment plan as listed above, goals of care, and symptom management. Case was discussed with nursing staff,
specialists, and care coordinators/case management. All labs and imaging personally reviewed by me. Remainder the time spent in detailed review of previous records, lab data, imaging, and other medical provider documentation.
Anticipated Discharge: 24 - 48 hours
Subjective/Interval History
-
Date of Service: May 22, 2025
Patient tells me she had a lot of episodes of bright blood per rectum last night but today she is having multiple episodes of watery diarrhea. No nausea or vomiting.
Objective Data
-
Labs:
Laboratory Results
05/22/25
07:17
WBC 6.1
Hgb 11.4 L
Hct 33.3 L
Plt Count 211
Sodium 139
Potassium 3.9
Chloride 110 H
Carbon Dioxide 24
BUN 7
Creatinine 0.6
Glucose 91
Calcium 7.7 L D
Vital Signs:
Vital Signs
Temp Pulse Resp BP Pulse Ox
98.1 F 63 16 118/84 99
05/22/25 07:30 05/22/25 07:30 05/22/25 07:30 05/22/25 07:30 05/22/25 07:30
--- NOTE | 2025-05-22 11:18 | CON.GI ---
Addendum entered and electronically signed by Meera Hayes Do, MD 05/22/25 15:05:
I saw and examined the patient.
The ATHLETICS TEACHER's note was reviewed and I agree with the note.
Comment: Joselyn is a 74yo W with h/o osteoporosis, hyperlipidemia and GERD who presents with intermittent diarrhea for a month with rectal bleeding. She had recent EGD/colon in February [address] Vera with polyps, hemorrhoids. She tells me
most of her life her bowel movements erratic. She generally is constipated. Despite 5-6BMs per day there is sense of incomplete evacuation and straining. She reports BRBPR and toilet paper. Denies AC use. She is on metamucil but not always
daily. Was given colestipol but made her more bloated and constipated. There is pantyliner use for intermittent urinary and stool leakage. Vitals stable. exam NTTP, NABS. Labs reviewed.
Impression
- Suspect overflow diarrhea from IBS-C
- Pelvic floor dysfunction
- Rectal bleeding
Likely hemorrhoidal
UTD with Cscope 02/2025 without proctitis
- Osteoporosis
- Hyperlipidemia
- GERD
Recommendation
- AXR reviewed
- Recommend mag citrate cleanse
- Then resume metamucil daily
- Anusol supp QHS [id number]
- Consider OP pelvic floor PT
- C/w low residue diet
- Serial H/H
Will follow with you
Original Note:
Consultation
-
Date/Time Consultation Requested: 05/22/25 0815
Date/Time Consultation Performed: 05/22/25 1118
Requesting Provider: Isaias Rodas MD
Performing Provider: ANDRES Toro, Meera Portillo MD
Reason for Consultation: diarrhea/ rectal bleeding
Medical History
Chief Complaint / HPI
Chief Complaint: diarrhea
History of Present Illness:
Pt is a 74yo with hx skin CA, GERD, hypercholesterolemia, colitis, osteoporosis with GI evaluation in January for GERD and irregular BM's with thinning of stools- worm like. She completed EGD and colonoscopy and had follow up in April with
Jody with with polyps including large 18mm polyp HF with with piecemeal removal, hemorrhoid and EGD with nodule in esophagus, multiple fundic gland gastric polyps, and erythema in stomach bx neg H pylori. After colonoscopy she began with
diarrhea having 6-8 stools per day with nocturnal stools with alternating watery stools and gelatinous stools. She also admits to wt loss 7-8 lbs maybe more with decreased oral intakes with continued diarrhea. She had tried fodmap diet, BRAT
diet, fiber, probiotics and recent start of Colestipol after visit 05/19. She also admits to recent small amount of pepto use. She began with onset black and red stool on 05/21 and present to ER for evaluation. She admits to multiple red stools
overnight since admission then. She is also noted with Ecoli UTI 05/12 with one dose abx and recurrent ecoli UTI this admission. Stool studies neg from last week with neg so far in repeat testing. Last abdominal imaging was CT in December with IV and
oral contrast with no acute findings.
Pt otherwise admits to chronic GERD controlled with pepcid, feeling of constipation after Colestipol and admits to abdominal ache. She denies odynophagia, dysphagia, nausea, or vomiting. No new medication. No recent travel.
Past Medical History
Past Medical History: Cancer (skin CA), GERD, Hypercholesterolemia and Other (osteoporosis , thryoid nodule, colitis )
Social History
Tobacco: Non-Smoker
Alcohol: None
Drug: None
Personal:
Living: With Family
Employment: Retired
Family History
Family History: Other (son with anal fissure, no family hx colon CA or polyps)
Allergies / Home Medications
Allergy/AdvReac Type Severity Reaction Status Date / Time
ibandronate sodium (From Allergy leg pain Verified 05/21/25 21:24
Boniva)
monosodium glutamate Allergy Hives Verified 05/21/25 21:24
�Medication �Instructions �Recorded
aspirin 81 mg tablet,delayed 81 mg PO DAILY 05/21/25
release
atorvastatin 20 mg tablet (Lipitor) 20 mg PO QPM 05/21/25
calcium citrate 1,200 mg PO DAILY 05/21/25
carboxymethylcellulose sodium 0.25 1 drp BOTH EYES BIDPRN PRN dryness 05/21/25
% eye drops (TheraTears)
colestipol 1 gram tablet 1 g PO BID 05/21/25
denosumab 60 mg/mL subcutaneous 60 mg SC [id number] 05/21/25
syringe (Prolia)
famotidine 20 mg tablet (Pepcid) 20 mg PO BID 05/21/25
finasteride 5 mg tablet 5 mg PO DAILY 05/21/25
minoxidil 2.5 mg tablet 2.5 mg PO DAILY 05/21/25
omega-3 fatty acids-fish oil 684 1 cap PO DAILY 05/21/25
mg-1,200 mg capsule,delayed release
therapeutic multivitamin 1 tab PO DAILY 05/21/25
Review of Systems
-
History Source: Patient
Constitutional: Reports Weight Loss and Fatigue
EENT: Reports No Symptoms
Respiratory: Reports No Symptoms
Cardiac: Reports No Symptoms
Abdomen/GI: Reports Abdominal Pain (mild ache ), Diarrhea (with change in stool pattern ), Bloody Stools and Black Stools
: Reports No Symptoms
Musculoskeletal: Reports No Symptoms
Skin: Reports No Symptoms
Neurological: Reports Weakness
Endocrine: Reports No Symptoms
Hematologic/Lymphatic: Reports Bleeding
Vital Signs
Temp Pulse Resp BP Pulse Ox
98.1 F 63 16 118/84 99
05/22/25 07:30 05/22/25 07:30 05/22/25 07:30 05/22/25 07:30 05/22/25 07:30
Physical Exam
Exam
General: Well Developed, Well Nourished and No Apparent Distress
HEENT: Normocephalic and Anicteric
Respiratory: Clear
Cardiac: Regular Rhythm
GI: Soft, Non Tender and Non Distended
Rectal: Other (no stool in rectum, no masses, mucous heme + small hemorroid )
Musculoskeletal: No Clubbing and No Cyanosis
Skin: Warm and Dry
Neuro: Awake, Alert and AO x 3
Psych: Calm
Results
WBC 6.1 10^3/uL (4.8-10.8) 05/22/25 07:17
Hgb 11.4 g/dL (12.0-16.0) L 05/22/25 07:17
Hct 33.3 % (37.0-47.0) L 05/22/25 07:17
MCV 94.9 fL (81.0-99.0) 05/22/25 07:17
Plt Count 211 10^3/uL (130-400) 05/22/25 07:17
Absolute Neuts (auto) 8.5 10^3/uL (1.4-6.5) H 05/21/25 14:12
PT 12.9 Sec (11.4-14.6) 05/21/25 14:12
INR 0.93 05/21/25 14:12
APTT 28.7 Sec (23.4-35.0) 05/21/25 14:12
Sodium 139 mmol/L (135-145) 05/22/25 07:17
Potassium 3.9 mmol/L (3.5-5.1) 05/22/25 07:17
Chloride 110 mmol/L (98-107) H 05/22/25 07:17
Carbon Dioxide 24 mmol/L (22-30) 05/22/25 07:17
BUN 7 mg/dl (7-17) 05/22/25 07:17
Creatinine 0.6 mg/dL (0.6-1.0) 05/22/25 07:17
Calcium 7.7 mg/dl (8.4-10.2) L D 05/22/25 07:17
Total Bilirubin 0.7 mg/dl (0.2-1.3) 05/21/25 14:12
AST 23 U/L (14-36) 05/21/25 14:12
ALT 19 U/L (0-35) 05/21/25 14:12
Alkaline Phosphatase 48 U/L (38-126) 05/21/25 14:12
Diagnostic Image Results:
12/27/24 CT Abd/pel W Iv And Oral Contr
1. No CT evidence for an acute inflammatory process in the abdomen or pelvis.
2. Chronic findings, as detailed above.
Prior GI Procedures:
03/25/25 colon protano - The examined portion of the ileum was normal.
- The examined portion of the ileum was normal.
- Normal mucosa in the entire examined colon. Biopsied.
- Two 2 mm polyps in the cecum and in the transverse colon, removed
with a cold biopsy forceps. Resected and retrieved.
- One 11 mm polyp at the hepatic flexure, removed with a cold
snare. Resected and retrieved.
- One 18 mm polyp at the hepatic flexure, removed piecemeal using a
cold snare. Resected and retrieved. Tattooed. Injected.
- Erythematous mucosa in the sigmoid colon. Biopsied.
- Internal hemorrhoids.
- Diverticulosis in the sigmoid colon, in the proximal descending
colon, in the transverse colon, in the ascending colon and at the
hepatic flexure.
bx Sessile serrate lesion in HF, TA in cecum and neg random bx neg
03/25/25- EGD - Normal esophagus.
- Biopsies were taken with a cold forceps for evaluation of
eosinophilic esophagitis.
- Erythematous mucosa in the stomach. Biopsied.
- Nodule found in the esophagus. Biopsied.
- Multiple gastric polyps. Biopsied.
- Normal examined duodenum. Biopsied.
bx fundic gland polyp, neg H pylori, focal glycogenic acanthosis
Assessment / Plan
-
Pt is a 74yo with hx skin CA, GERD, hypercholesterolemia, colitis, osteoporosis with GI evaluation in January for GERD and irregular BM's with thinning of stools- worm like. She completed EGD and colonoscopy and had follow up in April with
[facility] with with polyps including large 18mm polyp HF with with piecemeal removal, hemorrhoid and EGD with nodule in esophagus, multiple fundic gland gastric polyps, and erythema in stomach bx neg H pylori. After colonoscopy she began with
diarrhea having 6-8 stools per day with nocturnal stools with alternating watery stools and gelatinous stools. She also admits to wt loss 7-8 lbs maybe more with decreased oral intakes with continued diarrhea. She had tried fodmap diet, BRAT
diet, fiber, probiotics and recent start of Colestipol after visit 05/19. She also admits to recent small amount of pepto use. She began with onset black and red stool on 05/21 and present to ER for evaluation. She admits to multiple red stools
overnight since admission then. She is also noted with Ecoli UTI 05/12 with one dose abx and recurrent ecoli UTI this admission. Stool studies neg from last week with neg so far in repeat testing. Last abdominal imaging was CT in December with IV and
oral contrast with no acute findings.
-red and black stool
-diarrhea since February
-hx colon polyp due follow up 6 months
-recurrent UTI
-leukoctytosis
-wt loss
-GERD well controlled with Pepcid
other med problems:
skin CA, GERD, hypercholesterolemia, colitis, osteoporosis
PLAN:
etiology of chronic diarrhea unclear-- started in February ,random bx neg on colon, stools studies last week neg
now with rectal bleeding -- rectal exam without local source for bleeding
black stool may be pepto related with some dose prior to black stools
repeat cx pending will add repeat c-diff, giardia, crypto with recent abx for UTI last week
reviewed with nursing for recording all stools
no recent abdominal imaging with minimal pain will check obst series may need to consider CT
cont rx for recurrent UTI
add TSH and celiac panel for am
ok for clear diet advance as tolerated
currently on Protonix BID but on pepcid prior to admission
pt did question with diarrhea if UTI occurring with increase use of bidet
-
-
Thank you for consultation and allowing me to participate in the patient's care. Please call the loss prevention and safety manager GI physician during the after hours with any questions or concerns.
[2025-05-22] MEDS: CITROMA 300 ML PO (16:02)
[2025-05-22] MEDS: ROCEPHIN 1000 MG IV (20:34)
[2025-05-22] MEDS: STERILE WATER FOR INJECTION 10 ML IV (20:34)
[2025-05-22] MEDS: ANUSOL HC 25 MG RECTAL (21:37)
[2025-05-23] VITALS (7 sets, daily range): BP systolic 131–173; BP diastolic 59–80; PULSE 70–75; BMI 20.9
[2025-05-23] MEDS: NSS 1000 IV (03:03)
[2025-05-23 07:08] LABS: Hematocrit 33.3 % (37.0-47.0); Hemoglobin 11.5 g/dL (12.0-16.0); Mean Corp Hgb Conc. 34.5 g/dL (33.0-37.0); Mean Corpuscular Volume 94.3 fL (81.0-99.0); Nucleated Red Blood Cells % 0 %; Platelet Count 196 10^3/uL (130-400); Red Cell Dist. Width 12.2 % (11.5-14.5)
[2025-05-23 07:30] LABS: Blood Urea Nitrogen 7 mg/dl (7-17); Calcium 7.6 mg/dl (8.4-10.2); Carbon Dioxide 22 mmol/L (22-30); Chloride 111 mmol/L (98-107); Estimated Creatinine Clearance 71 ml/min; Glucose 92 mg/dl (70-99); Magnesium 2.5 mg/dl (1.6-2.3); Potassium 4.0 mmol/L (3.5-5.1); Sodium 139 mmol/L (135-145); eGFR > 60.00
[2025-05-23 07:56] LABS: TSH 1.49 uIU/ml (0.47-4.68)
[2025-05-23] MEDS: NSS (PRESERVATIVE FREE) 10 ML IV (08:38)
[2025-05-23] MEDS: PROTONIX IV 40 MG IV (08:38)
--- NOTE | 2025-05-23 09:42 | PTCARENOTE ---
Pt refused bed alarm. AAOx3. Rings appropriately.
--- NOTE | 2025-05-23 10:35 | W.PN.HOSP.TC ---
Today's Communication/Plan
-
GI reeval. Antibiotic
Assessment / Plan
Assessment / Plan
Physical exam:
General: Acutely ill
HEENT: Normocephalic, Atraumatic and Moist Mucous Membranes
Respiratory: Clear to Auscultation; Negative Wheezes, Rales or Rhonchi
Cardiac: Regular Rhythm and S1/S2
GI: Soft, Nontender and Nondistended; Bowel sounds hyperdynamic
Musculoskeletal: No Clubbing, No Cyanosis and No Edema
Neuro: Awake, Alert and Oriented, no neurological deficits
Psych: Calm
A/P:
Acute on chronic diarrhea:
Suspicion for overflow diarrhea and underlying IBS
Bowel regimen
On IV fluid but probably can stop
GI consult appreciated and waiting for further input today
Discussed with at bedside yesterday
Discharge planning once cleared by GI
Rectal bleeding:
Probably hemorrhoidal
Advance to low residue diet
Stool studies negative for active infection
Anusol as needed
Continue monitor hemoglobin
Gentle hydration
Acute blood loss anemia:
Acute blood loss versus dilutional
Continue to monitor hemoglobin closely
Recurrent versus relapse UTI:
E. coli in the urine pansensitive
Continue IV ceftriaxone and will switch to oral likely tomorrow
Left fifth nondisplaced metatarsal fracture:
PT evaluations
GERD:
Continue PPI but change to once a day
DVT prophylaxis:
SCDs
CODE STATUS:
Full code
Time 35 minutes
Anticipated Discharge: Within 24 hours
Subjective/Interval History
-
Date of Service: May 23, 2025
Patient denies any more rectal bleeding but continues to have watery diarrhea. No nausea or vomiting. Afebrile
Objective Data
-
Labs:
Laboratory Results
05/23/25
06:23
WBC 6.4
Hgb 11.5 L
Hct 33.3 L
Plt Count 196
Sodium 139
Potassium 4.0
Chloride 111 H
Carbon Dioxide 22
BUN 7
Creatinine 0.6
Glucose 92
Calcium 7.6 L
Vital Signs:
Vital Signs
Temp Pulse Resp BP Pulse Ox
97.8 F 61 16 131/63 99
05/23/25 07:00 05/23/25 07:00 05/23/25 07:00 05/23/25 07:00 05/23/25 07:00
I&O
05/22/25 05/23/25 05/24/25
06:59 06:59 06:59
Intake Total 1080 / 1080
Balance 1080 / 1080
[2025-05-23] MEDS: CALCIUM GLUCONATE 100 IV (13:34)
[2025-05-23] MEDS: LIPITOR 20 MG PO (17:41)
--- NOTE | 2025-05-23 18:31 | W.PN.GI.CBS2 ---
Today's Communication / Plan
-
added probiotics
Assessment / Plan
-
Pt is a 74yo with hx skin CA, GERD, hypercholesterolemia, colitis, osteoporosis with GI evaluation in January for GERD and irregular BM's with thinning of stools- worm like. She completed EGD and colonoscopy and had follow up in April with
Protano with with polyps including large 18mm polyp HF with with piecemeal removal, hemorrhoid and EGD with nodule in esophagus, multiple fundic gland gastric polyps, and erythema in stomach bx neg H pylori. After colonoscopy she began with
diarrhea having 6-8 stools per day with nocturnal stools with alternating watery stools and gelatinous stools. She also admits to wt loss 7-8 lbs maybe more with decreased oral intakes with continued diarrhea. She had tried fodmap diet, BRAT
diet, fiber, probiotics and recent start of Colestipol after visit 05/19. She also admits to recent small amount of pepto use. She began with onset black and red stool on 05/21 and present to ER for evaluation. She admits to multiple red stools
overnight since admission then. She is also noted with Ecoli UTI 05/12 with one dose abx and recurrent ecoli UTI this admission. Stool studies neg from last week with neg so far in repeat testing. Last abdominal imaging was CT in December with IV and
oral contrast with no acute findings.
-red and black stool
-diarrhea since February
-hx colon polyp due follow up 6 months
-recurrent UTI
-leukoctytosis
-wt loss
-GERD well controlled with Pepcid
other med problems:
skin CA, GERD, hypercholesterolemia, colitis, osteoporosis
PLAN:
Chronic diarrhea likely multifactorial from probable IBS-D possible SIBO versus bile salt diarrhea or overflow diarrhea.
Workup in the past was negative for microscopic colitis and negative for celiac she said that the BRAT diet and the low FODMAP diet did not really help with her symptoms
She had mag citrate yesterday and had multiple bowel movements
Stool studies on admission were negative for infection
Added probiotics
Consider Xifaxan as outpatient for probable SIBO
Okay to DC home from a GI perspective and follow-up with Dr. Vera as outpatient.
Continue antibiotics for UTI per primary team
GI will sign off and will be available as needed
Subjective
Subjective
Date of Service: May 23, 2025
She had multiple bowel movements after receiving the magnesium citrate. Feels bloated but no pain. No nausea or vomiting. X-ray from yesterday shows minimal stool in the colon no bowel obstruction
Objective
Data Reviewed
Laboratory Data:
Laboratory Results
05/23/25 06:23
05/23/25 06:23
Laboratory Results
PT 12.9 Sec (11.4-14.6) 05/21/25 14:12
INR 0.93 05/21/25 14:12
APTT 28.7 Sec (23.4-35.0) 05/21/25 14:12
Magnesium 2.5 mg/dl (1.6-2.3) H 05/23/25 06:23
Total Bilirubin 0.7 mg/dl (0.2-1.3) 05/21/25 14:12
AST 23 U/L (14-36) 05/21/25 14:12
ALT 19 U/L (0-35) 05/21/25 14:12
Alkaline Phosphatase 48 U/L (38-126) 05/21/25 14:12
Vital Signs and I&O:
Vital Signs
Temp Pulse Resp BP Pulse Ox
98.5 F 54 18 131/59 97
05/23/25 15:00 05/23/25 15:00 05/23/25 15:00 05/23/25 15:00 05/23/25 15:00
I&O
05/22/25 05/23/25 05/24/25
06:59 06:59 06:59
Intake Total 1080 / 1080 340 / 340
Balance 1080 / 1080 340 / 340
Physical Exam
Physical Exam
Cardiology: Normal Sinus Rhythm
Pulmonary: Clear
GI: Soft, Non Distended, Non Tender and Normal Bowel Sounds
--- NOTE | 2025-05-23 19:06 | PTCARENOTE ---
Pt does not have ride for dc.
--- NOTE | 2025-05-23 19:07 | PTCARENOTE ---
Pt does not have ride for dc. made aware.
[2025-05-23] MEDS: KEFLEX 500 MG PO (20:39)
[2025-05-23] MEDS: ANUSOL HC 25 MG RECTAL (21:41)
[2025-05-24 03:10] VITALS: BP 128/63
[2025-05-24 05:52] LABS: Hematocrit 34.2 % (37.0-47.0); Hemoglobin 11.9 g/dL (12.0-16.0); Mean Corp Hgb Conc. 34.8 g/dL (33.0-37.0); Mean Corpuscular Volume 93.2 fL (81.0-99.0); Nucleated Red Blood Cells % 0 %; Platelet Count 206 10^3/uL (130-400); Red Cell Dist. Width 12.1 % (11.5-14.5)
[2025-05-24 06:11] LABS: Blood Urea Nitrogen 11 mg/dl (7-17); Calcium 8.7 mg/dl (8.4-10.2); Carbon Dioxide 24 mmol/L (22-30); Chloride 109 mmol/L (98-107); Estimated Creatinine Clearance 71 ml/min; Glucose 105 mg/dl (70-99); Potassium 4.3 mmol/L (3.5-5.1); Sodium 138 mmol/L (135-145); eGFR > 60.00
[2025-05-24 06:15] VITALS: BMI 20.6
--- NOTE | 2025-05-24 07:37 | W.PN.HOSP.TC ---
Today's Communication/Plan
-
Discharge planning today
Assessment / Plan
Assessment / Plan
Physical exam:
General: No acute distress
HEENT: Normocephalic, Atraumatic and Moist Mucous Membranes
Respiratory: Clear to Auscultation; Negative Wheezes, Rales or Rhonchi
Cardiac: Regular Rhythm and S1/S2
GI: Soft, Nontender and Nondistended; Bowel sounds normal
Musculoskeletal: No Clubbing, No Cyanosis and No Edema
Neuro: Awake, Alert and Oriented, no neurological deficits
Psych: Calm
A/P:
Acute on chronic diarrhea:
Suspicion for overflow diarrhea and underlying IBS
Bowel regimen
On IV fluid but probably can stop
GI consult appreciated
Discussed with prior
Discharge with GI and she is cleared for discharge
Rectal bleeding:
Probably hemorrhoidal
Advance to low residue diet
Stool studies negative for active infection
Anusol as needed
Continue monitor hemoglobin
Gentle hydration
Acute blood loss anemia:
Acute blood loss versus dilutional
Continue to monitor hemoglobin closely
Recurrent versus relapse UTI:
E. coli in the urine pansensitive
Switched antibiotics to oral today
Left fifth nondisplaced metatarsal fracture:
PT evaluations
GERD:
Continue PPI but change to once a day
DVT prophylaxis:
SCDs
CODE STATUS:
Full code
Anticipated Discharge: Today
Subjective/Interval History
-
Date of Service: May 24, 2025
No new complaint
Objective Data
-
Labs:
Laboratory Results
05/24/25
05:02
WBC 6.9
Hgb 11.9 L
Hct 34.2 L
Plt Count 206
Sodium 138
Potassium 4.3
Chloride 109 H
Carbon Dioxide 24
BUN 11
Creatinine 0.6
Glucose 105 H
Calcium 8.7
Vital Signs:
Vital Signs
Temp Pulse Resp BP Pulse Ox
98.2 F 56 18 128/63 96
05/24/25 03:10 05/24/25 03:10 05/24/25 03:10 05/24/25 03:10 05/24/25 03:10
I&O
05/23/25 05/24/25 05/25/25
06:59 06:59 06:59
Intake Total 1080 / 1080 820 / 820
Balance 1080 / 1080 820 / 820
--- NOTE | 2025-05-24 07:38 | W.DCSUMMARY ---
Discharge Summary
Discharge Data
Date of Admission: 05/21/25
Date of Discharge: 05/24/25
-
Pending Results: No
Hospital Course
Patient is 74 years old female with history of dyslipidemia, osteoporosis, pelvic floor dysfunction, GERD, chronic diarrhea presented to the hospital with acute on chronic diarrhea and rectal bleeding. GI was consulted. GI felt her rectal bleeding
was related to hemorrhoid and she was started on suppositories. Her hemoglobin remained stable. GI also thought her acute on chronic diarrhea was related to overflow diarrhea with underlying irritable bowel syndrome constipation predominant.
Patient was started on bowel regimen. She was also recommended pelvic floor PT as outpatient. She was also started on low residue diet. Her stool studies were negative for any acute infection. GI cleared her for discharge and she will be
discharged in stable condition today.
Discharge Plan
-
Patient Disposition: Home (Routine Discharge)
Discharge Diagnosis/Procedures: Acute on chronic diarrhea. Irritable bowel syndrome. Urinary tract infection.
Diet: Low Residue
Activity: As tolerated
Blood Work: Please PCP to order CBC, BMP within 1 week
Referrals:
Godfrey Herr MD [Family Provider, Internal Medicine] - in less than 1 week
Ana Vera MD [Active, Gastroenterology] - in two to four weeks
Prescriptions:
New
hydrocortisone acetate 25 mg Suppository
25 mg IN HS 7 Days Qty: 12 0RF
cephalexin 500 mg Capsule
500 mg PO BID 5 Days Qty: 10 0RF
Saccharomyces boulardii [Florastor] 250 mg capsule
250 mg PO BID Qty: 20 0RF
Continued
atorvastatin [Lipitor] 20 mg Tablet
20 mg PO QPM
therapeutic multivitamin Tablet
1 tab PO DAILY
minoxidil 2.5 mg Tablet
2.5 mg PO DAILY
aspirin 81 mg Tablet,Delayed Release (Dr/Ec)
81 mg PO DAILY
TheraTears 0.25 % Drops
1 drp BOTH EYES BIDPRN PRN (Reason: dry eyes)
famotidine [Pepcid] 20 mg Tablet
20 mg PO BID
colestipol 1 gram Tablet
1 g PO BID
finasteride 5 mg Tablet
5 mg PO DAILY
calcium citrate 250 mg calcium Tablet
1,200 mg PO DAILY
omega-3 fatty acids-fish oil 684-1,200 mg Capsule,Delayed Release(Dr/Ec)
1 cap PO DAILY
Prolia 60 mg/mL Syringe
60 mg SC [id number]
Discharge Orders:
Discharge Patient (As Directed); Ordered 05/24/25
Ordered By: Isaias Rodas
Discharge Date and Time
Discharge Date/Time: 05/24/25 09:48
Print Language: AMHARIC
[2025-05-24] MEDS: PROTONIX IV 40 MG IV (07:52)
[2025-05-24] MEDS: KEFLEX 500 MG PO (07:53)
[2025-05-24] MEDS: VISBIOME 2 CAP PO (07:53)
[2025-05-24] MEDS: NSS (PRESERVATIVE FREE) 10 ML IV (07:53)
[2025-05-24 08:40] VITALS: BP 145/69
== END 2025-05-24 09:48 | disposition home or self-care (01) | DRG 378 ==
LOC: 3 WEST ACU 20:15
PROVIDERS: Emergency Medicine; Nurse Practitioner; Nurse Practitioner Adult Health; ADMITTING PHYSICIAN Hospitalist; ATTENDING PHYSICIAN Hospitalist; CONSULT PHYSICIAN Internal Medicine Gastroenterology; EMERGENCY PHYSICIAN Emergency Medicine; FAMILY PHYSICIAN Internal Medicine Geriatric Medicine
DX: K62.5 Hemorrhage of anus and rectum (principal); D62 Acute posthemorrhagic anemia; N39.0 Urinary tract infection, site not specified; K58.9 Irritable bowel syndrome, unspecified; R55 Syncope and collapse; R00.2 Palpitations; B96.20 Unspecified Escherichia coli [E. coli] as the cause of diseases classified elsewhere; M81.0 Age-related osteoporosis without current pathological fracture; K21.9 Gastro-esophageal reflux disease without esophagitis; E78.00 Pure hypercholesterolemia, unspecified; R63.4 Abnormal weight loss; K64.8 Other hemorrhoids; K57.30 Diverticulosis of large intestine without perforation or abscess without bleeding; S92.355A Nondisplaced fracture of fifth metatarsal bone, left foot, initial encounter for closed fracture; W19.XXXA Unspecified fall, initial encounter; Z68.20 Body mass index [BMI] 20.0-20.9, adult; Z79.82 Long term (current) use of aspirin
CPT/HCPCS: 74022; 80048; 80053; 81003; 81015; 82784; 83516; 83735; 84443; 85025; 85027; 85610; 85730; 86231; 86850; 86900; 86901; 87045; 87046; 87086; 87088; 87186; 87324; 87328; 87329; 87427; 87449; 89055; 96361; 96374; 97162; 99285

== ENCOUNTER → 2025-06-03 08:14 | Outpatient (REF) | payer MEDICARE, OTHER, SELFPAY ==
[2025-06-03 09:03] LABS: Hematocrit 39.0 % (37.0-47.0); Hemoglobin 13.1 g/dL (12.0-16.0); Mean Corp Hgb Conc. 33.6 g/dL (33.0-37.0); Mean Corpuscular Volume 94.0 fL (81.0-99.0); Nucleated Red Blood Cells % 0 %; Platelet Count 308 10^3/uL (130-400); Red Cell Dist. Width 12.7 % (11.5-14.5)
[2025-06-03 09:26] LABS: ALT (SGPT) 24 U/L (0-35); AST (SGOT) 27 U/L (14-36); Albumin 4.5 g/dl (3.5-5.0); Alkaline Phosphatase 43 U/L (38-126); Blood Urea Nitrogen 12 mg/dl (7-17); Calcium 9.4 mg/dl (8.4-10.2); Carbon Dioxide 30 mmol/L (22-30); Chloride 103 mmol/L (98-107); Glucose 102 mg/dl (70-99); HDL Cholesterol 76 mg/dl; LDL Cholesterol, Calculated 52 mg/dl; Potassium 4.7 mmol/L (3.5-5.1); Sodium 139 mmol/L (135-145); Total Protein 7.1 g/dl (6.3-8.2); Very Low Density Lipoprotein 23 mg/dl (0-30); eGFR > 60.00
[2025-06-03 09:36] LABS: Total Iron Binding Capacity 265 ug/dl (265-497)
[2025-06-03 09:40] LABS: Vitamin D, 25-OH*** 38.3 ng/mL (30-80)
[2025-06-03 11:13] LABS: Glycohemoglobin (HgbA1c) 5.7 % (4.0-5.6)
== END ==
LOC: REG 08:14
PROVIDERS: ATTENDING PHYSICIAN Internal Medicine Geriatric Medicine
DX: K58.9 Irritable bowel syndrome, unspecified (principal); N39.0 Urinary tract infection, site not specified; I10 Essential (primary) hypertension; Z09 Encounter for follow-up examination after completed treatment for conditions other than malignant neoplasm; E78.2 Mixed hyperlipidemia; E04.1 Nontoxic single thyroid nodule; R73.09 Other abnormal glucose; K21.9 Gastro-esophageal reflux disease without esophagitis; Z00.00 Encounter for general adult medical examination without abnormal findings; E78.5 Hyperlipidemia, unspecified; Z79.899 Other long term (current) drug therapy; R79.0 Abnormal level of blood mineral
CPT/HCPCS: 36415; 80053; 80061; 82306; 83036; 83550; 84443; 85025

== ENCOUNTER → 2025-06-27 09:16 | Outpatient (REF) | payer MEDICARE, OTHER, SELFPAY ==
[2025-06-27 10:46] LABS: Hematocrit 41.7 % (37.0-47.0); Hemoglobin 13.9 g/dL (12.0-16.0); Mean Corp Hgb Conc. 33.3 g/dL (33.0-37.0); Mean Corpuscular Volume 95.4 fL (81.0-99.0); Nucleated Red Blood Cells % 0 %; Platelet Count 224 10^3/uL (130-400); Red Cell Dist. Width 12.9 % (11.5-14.5)
[2025-06-27 11:15] LABS: ALT (SGPT) 26 U/L (0-35); AST (SGOT) 29 U/L (14-36); Albumin 4.8 g/dl (3.5-5.0); Alkaline Phosphatase 41 U/L (38-126); Blood Urea Nitrogen 16 mg/dl (7-17); Calcium 9.5 mg/dl (8.4-10.2); Carbon Dioxide 27 mmol/L (22-30); Chloride 102 mmol/L (98-107); Glucose 92 mg/dl (70-99); HDL Cholesterol 88 mg/dl; Potassium 4.6 mmol/L (3.5-5.1); Sodium 135 mmol/L (135-145); Total Protein 7.8 g/dl (6.3-8.2); Very Low Density Lipoprotein 22 mg/dl (0-30); eGFR > 60.00
[2025-06-27 11:24] LABS: LDL Cholesterol, Calculated 68 mg/dl
[2025-06-27 11:31] LABS: Vitamin D, 25-OH*** 45.7 ng/mL (30-80)
[2025-06-27 11:44] LABS: TSH 1.19 uIU/ml (0.47-4.68)
[2025-06-27 12:03] LABS: Vitamin B12 513 pg/ml (239-931)
[2025-06-27 15:02] LABS: Hepatitis C Antibody Negative (Negative)
[2025-06-29 16:56] LABS: ANA, IgG Reflex to HEp-2 Detected (None Detected)
== END ==
LOC: REG 09:16
PROVIDERS: ATTENDING PHYSICIAN Internal Medicine Geriatric Medicine
DX: I10 Essential (primary) hypertension (principal); Z00.00 Encounter for general adult medical examination without abnormal findings; E78.5 Hyperlipidemia, unspecified; E04.1 Nontoxic single thyroid nodule; R35.0 Frequency of micturition; K21.9 Gastro-esophageal reflux disease without esophagitis; Z13.31 Encounter for screening for depression; K58.9 Irritable bowel syndrome, unspecified; K92.2 Gastrointestinal hemorrhage, unspecified; G58.9 Mononeuropathy, unspecified; Z79.899 Other long term (current) drug therapy; E53.1 Pyridoxine deficiency; M81.0 Age-related osteoporosis without current pathological fracture
CPT/HCPCS: 36415; 80053; 80061; 82306; 82607; 84155; 84165; 84207; 84425; 84439; 84443; 85025; 85652; 86038; 86618; 86803

== ENCOUNTER → 2025-08-01 10:53 | Outpatient (REF) | payer MEDICARE, OTHER, SELFPAY | LOC: WDC 10:53 | PROVIDERS: ATTENDING PHYSICIAN Internal Medicine Geriatric Medicine | DX: Z12.31 Encounter for screening mammogram for malignant neoplasm of breast (principal) | CPT/HCPCS: 77063; 77067 ==